=== PATIENT | male | born 1975 | race Caucasian/White ===

== ENCOUNTER 2023-11-04 06:44 | Day surgery (SDC) | payer OTHER ==
[~2023-11-04] VITALS: Ht 185.4 cm; Wt 108.0 kg
[2023-11-04] MEDS ORDERED: fentaNYL CITRATE/PF 100 MCG/2 ML AMP ONE ×2 (07:20→08:25)
[2023-11-04] MEDS ORDERED: MIDAZOLAM HCL 5 MG/5 ML VIAL ONE ×2 (07:21→08:25)
[2023-11-04 08:00] VITALS: O2SAT 98
[2023-11-04 15:16] VITALS: BP_SYST 138; PULSE 58; RESP 17
== END 2023-11-04 09:56 | disposition home or self-care (01) ==
LOC: SDS 06:44 → SMU 06:46 → SDS 09:56
PROVIDERS: ATTEND Internal Medicine
DX: Z12.11 Encounter for screening for malignant neoplasm of colon (principal); D12.2 Benign neoplasm of ascending colon; D12.3 Benign neoplasm of transverse colon; I10 Essential (primary) hypertension; J45.909 Unspecified asthma, uncomplicated; K21.9 Gastro-esophageal reflux disease without esophagitis; Z87.891 Personal history of nicotine dependence; Z79.899 Other long term (current) drug therapy
CPT/HCPCS: 45385; 99152; 88305; G0378; J2250; J3010